=== PATIENT | male | born 1985 | race Caucasian/White ===

== ENCOUNTER → 2018-10-28 | Outpatient (CLI) | payer OTHER ==
--- NOTE | 2018-10-28 15:34 | REP ---
Clinical: Left elbow pain and swelling . Technique: AP, lateral, bilateral oblique views of the left elbow. Findings: No acute fracture or dislocation is appreciated. Joint spaces and fat pads appear normal. Lateral view demonstrates moderate posterior swelling suggesting the possibility of underlying bursitis. No subcutaneous emphysema or foreign body identified. Impression: Posterior swelling suggesting the possibility of bursitis. Electronically Signed by Tae March MD 10/28/2018 03:25 P
== END ==
LOC: M WUC 14:52
PROVIDERS: ATTEND Physician Assistant
DX: M25.522 Pain in left elbow (principal); M79.89 Other specified soft tissue disorders

== ENCOUNTER → 2018-11-11 | Outpatient (CLI) | payer OTHER ==
[2018-11-11 13:30] LABS: ALT/SGPT 54 U/L (12-78); BASO % 0.6 % (0.0-1.0); BILIRUBIN,TOTAL 0.6 MG/DL (0.2-1.0); BLOOD UREA NITROGEN 12 MG/DL (7-18); CALCIUM LEVEL 8.9 MG/DL (8.5-10.1); CARBON DIOXIDE LEVEL 28 MEQ/L (21-32); CHLORIDE LEVEL 107 MEQ/L (98-107); CREATININE FOR GFR 0.76 MG/DL (0.70-1.30); EOS # 0.1 10^3/uL (0.0-0.50); EOS % 1.5 % (0.0-3.0); GLOMERULAR FILTRATION RATE > 60.0 (>60); GLUCOSE, FASTING 95 MG/DL (70-100); HEMATOCRIT 48.1 % (42.0-52.0); LYMPH # 2.2 10^3/uL (1.5-4.5); LYMPH % 31.6 % (24.0-44.0); MEAN CORPUSCULAR HEMOGLOBIN 29.9 pg (27.0-33.0); MEAN CORPUSCULAR HGB CONC 33.3 g/dl (32.0-36.5); MEAN CORPUSCULAR VOLUME 89.9 fl (80.0-96.0); MONO # 0.7 10^3/uL (0.0-0.8); MONO % 10.6 % (0.0-5.0); NEUTROPHILS # 3.8 10^3/uL (1.8-7.7); NEUTROPHILS % 55.1 % (36.0-66.0); PLATELET COUNT, AUTOMATED 278 10^3/uL (150-450); POTASSIUM SERUM 4.9 MEQ/L (3.5-5.1); RED BLOOD COUNT 5.35 10^6/uL (4.30-6.10); SODIUM LEVEL 142 MEQ/L (136-145); TOTAL PROTEIN 7.3 GM/DL (6.4-8.2); WHITE BLOOD COUNT 6.9 10^3/uL (4.0-10.0)
== END ==
LOC: M WUC 09:47
PROVIDERS: ATTEND Physician Assistant
DX: M70.22 Olecranon bursitis, left elbow (principal)